=== PATIENT | female | born 1960 ===

== ENCOUNTER 2021-05-08 17:59 | Emergency (ER) | payer OTHER ==
[~2021-05-08] VITALS: Ht 165.1 cm; Wt 95.3 kg
[2021-05-08] MEDS ORDERED: EFFEXOR XR150 MG PO (19:21)
[2021-05-08] MEDS ORDERED: TRANXENE T-TAB7.5 MG PO (19:21)
[2021-05-08] MEDS ORDERED: FENOFIBRATE150 MG PO (19:22)
[2021-05-08] MEDS ORDERED: GLUMETZA1000 MG PO (19:22)
[2021-05-08] MEDS ORDERED: LOSARTAN-HCTZ1 EAC2 PO (19:22)
[2021-05-08] MEDS ORDERED: GLIMEPIRIDE4 M1 PO (19:22)
[2021-05-08] MEDS ORDERED: PRAVASTATIN SOD10 MG PO (19:22)
[2021-05-08] MEDS ORDERED: OMEPRAZOLE40 MG PO (19:23)
[2021-05-08] MEDS ORDERED: ABILIFY5 MG PO (19:23)
[2021-05-08] MEDS ORDERED: ASA81 MG PO (19:23)
[2021-05-08] MEDS ORDERED: HUMALOG100 UNIT/2 (19:23)
[2021-05-08] MEDS ORDERED: DITROPAN XL5 MG PO (19:24)
== END 2021-05-08 22:49 | disposition home or self-care (01) ==
LOC: ER 17:59
DX: Z98.890 Other specified postprocedural states (principal)